=== PATIENT | female | born 1965 | race Caucasian/White ===

== ENCOUNTER 2018-06-13 19:04 | Emergency (ER) | payer MEDICARE ==
[2018-06-13 19:20] VITALS: BP 114/64
--- NOTE | 2018-06-13 19:29 | UC ---
Lower Extremity/Ankle HPI - HPI Summary HPI Summary: 4 days ago patient went to sit down on side of a swimming pool and she felt immediate pain in her right lateral foot---later had continued pain and swelling ---patient comes to urgent care today do to continued pain swelling and bruising 4/5 mt of right foot - History of Current Complaint Chief Complaint: UCLowerExtremity Stated Complaint: R FOOT INJURY Time Seen by Provider: 06/13/18 19:23 Hx Obtained From: Patient Hx Last Menstrual Period: hyster ?: No Onset/Duration: Sudden Onset, Lasting Days - 4 Pain Intensity: 7 Pain Scale Used: 0-10 Numeric Aggravating Factor(s): Standing, Ambulation Alleviating Factor(s): Rest, Elevation, Ice, OTC Meds Able to Bear Weight: Yes - Allergies/Home Medications Allergies/Adverse Reactions: Allergies Allergy/AdvReac Type Severity Reaction Status Date / Time Penicillins Allergy See Comment Verified 06/13/18 19:12 sulfamethoxazole Allergy Vomiting Verified 06/13/18 19:12 [From Bactrim] trimethoprim [From Bactrim] Allergy Vomiting Verified 06/13/18 19:12 Home Medications: Home Medications Acetaminophen [Tylenol Extra Strength] 1,000 mg PO Q8HR 06/13/18 [History Confirmed 06/13/18] PMH/Surg Hx/FS Hx/Imm Hx Previously Healthy: No - leukemia Cardiovascular History: Hypertension Psychological History: Depression - Surgical History Surgical History: Yes Surgery Procedure, Year, and Place: hysterectomy, 2002, [facility] [place]. , 1999, [facility] [place] - Family History Known Family History: Positive: Cardiac Disease, Hypertension - Social History Occupation: Unemployed Lives: With Family Alcohol Use: Occasionally Substance Use Type: None Smoking Status (MU): Never Smoked Tobacco Have You Smoked in the Last Year: No - Immunization History Most Recent Influenza Vaccination: not this season Review of Systems Constitutional: Negative Skin: Bruising - right foot Eyes: Negative ENT: Negative Respiratory: Negative Cardiovascular: Negative Gastrointestinal: Negative Genitourinary: Negative Motor: Negative Neurovascular: Negative Musculoskeletal: Arthralgia - right lateral foot pain Neurological: Negative Psychological: Negative Is Patient Immunocompromised?: No All Other Systems Reviewed And Are Negative: Yes Physical Exam Triage Information Reviewed: Yes Appearance: Well-Appearing, Pain Distress - mild, Obese Vital Signs: Initial Vital Signs Temp 97.3 F 06/13/18 19:11 Pulse 86 09/02/18 19:11 Resp 18 06/13/18 19:11 BP 114/64 06/13/18 19:11 Pulse Ox 95 06/13/18 19:11 Vital Signs Reviewed: Yes Eye Exam: Normal Eyes: Positive: Conjunctiva Clear ENT Exam: Normal ENT: Positive: Normal ENT inspection, Hearing grossly normal. Negative: Trismus , Muffled voice, Hoarse voice Dental Exam: Normal Neck exam: Normal Neck: Positive: Supple, Nontender Respiratory Exam: Normal Respiratory: Positive: Chest non-tender, No respiratory distress, No accessory muscle use Cardiovascular Exam: Normal Cardiovascular: Positive: RRR, Pulses Normal, Brisk Capillary Refill Musculoskeletal Exam: Normal, Other Musculoskeletal: Positive: ROM Intact, Strength Limited @ - right foot, Edema @ - right foot Neurological Exam: Normal Neurological: Positive: Alert, Muscle Tone Normal Psychological Exam: Normal Skin Exam: Normal Diagnostics - Radiology No standard instances Xray Interpretation: No Acute Changes Radiology Interpretation Completed By: ED Physician - fracture rigth fifth MT Lower Extremity Course/Dx - Course Course Of Treatment: elevated, nhi, cam boot, tylenol for pain follow with orthopedic MD 2 days - Differential Dx/Diagnosis Provider Diagnoses: displaced right 5th metatarsal fracture Discharge - Sign-Out/Discharge Documenting (check all that apply): Patient Departure All imaging exams completed and their final reports reviewed: No - Discharge Plan Condition: Stable Disposition: HOME Patient Education Materials: Acetaminophen (By mouth), Foot Fracture in Adults (ED), R.I.C.E. Treatment (ED) Referrals: Magdy Schwartz MD [Medical Doctor] - 2 Days - Billing Disposition and Condition Condition: STABLE Disposition: Home - Attestation Statements Provider Attestation: Per institutional requirements, I have reviewed the chart, however, I was not consulted specifically or made aware of this patient by the midlevel provider. I did not personally evaluate, interact with , or disposition this patient.
--- NOTE | 2018-06-14 07:44 | RAD ---
Indication: Right foot injury. 3 views of the right foot demonstrates comminuted fracture of the midshaft of the fifth metatarsal. No significant displacement is noted. Inferior calcaneal spur is noted. IMPRESSION: Comminuted fracture fifth metatarsal. R0
== END 2018-06-13 19:50 | disposition home or self-care (01) ==
LOC: UCEAST 19:04
DX: S92.354A Nondisplaced fracture of fifth metatarsal bone, right foot, initial encounter for closed fracture (principal); X58.XXXA Exposure to other specified factors, initial encounter; Y93.89 Activity, other specified; Y92.34 Swimming pool (public) as the place of occurrence of the external cause; Z88.0 Allergy status to penicillin; Z88.2 Allergy status to sulfonamides
CPT/HCPCS: 99213; G0463

== ENCOUNTER 2021-10-08 14:41 | Inpatient (IN) ==
[2021-10-08 16:14] LABS: ABS Lymphocytes 1.2 10^3/ul (1.0-4.8); ABS Monocytes 0.6 10^3/ul (0-0.8); ABS Neutrophils 4.2 10^3/ul (1.5-7.7); Hematocrit 41 % (35-47); Hemoglobin 13.5 g/dL (12.0-16.0); Lymphocyte % 20.3 %; Mean Corpuscular HGB Conc 33 g/dL (31-36); Mean Corpuscular Hemoglobin 28 pg (27-31); Mean Corpuscular Volume 84 fL (80-97); Mean Platelet Volume 8.7 fL (7.4-10.4); Nucleated Red Blood Cells % 0.1; Platelet Count 133 10^3/uL (150-450); Red Blood Count 4.85 10^6 /uL (3.70-4.87); Red Cell Distribution Width 19 % (10-15)
[2021-10-08 16:30] LABS: ALT 18 U/L (7-52); AST 48 U/L (13-39); Albumin 3.2 g/dL (3.2-5.2); Albumin/Globulin Ratio 0.9 (1-3); Alkaline Phosphatase 101 U/L (35-149); Anion Gap 6 mmol/L (2-11); Blood Urea Nitrogen 7 mg/dL (6-24); C Reactive Protein 76.61 mg/L (<8.01); CO2 Carbon Dioxide 29 mmol/L (22-32); Calcium 9.2 mg/dL (8.6-10.3); Chloride 97 mmol/L (101-111); Globulin 3.5 g/dL (2-4); Glucose 167 mg/dL (70-100); Potassium 3.5 mmol/L (3.5-5.0); Sodium 132 mmol/L (135-145); Total Protein 6.7 g/dL (6.4-8.9); eGFR CKD-EPI 107.3 (>60)
[2021-10-08 16:34] LABS: Troponin I 0.03 ng/mL (<0.03)
[2021-10-08] MEDS ORDERED: Remdesivir 100 mg Vial 200 MG in NS 0.9% 250 ml 210 ML IV ONE (17:32)
[2021-10-08] MEDS ORDERED: Albuterol HFA INHALER 8 gm MDI INH PRN (17:40)
[2021-10-08] MEDS ORDERED: Dextrose 50% Syringe 50 ml 25 GM/50 ML SYRINGE IV PUSH PRN (17:43)
[2021-10-08] MEDS: Enoxaparin 40 MG/0.4 ML SYR SUBCUT SCH (18:52)
[2021-10-08 20:41] LABS: INR 1.38 (0.86-1.15)
[2021-10-08 20:43] LABS: Albumin 3.1 g/dL (3.2-5.2); Albumin/Globulin Ratio 0.9 (1-3); Calcium 9.2 mg/dL (8.6-10.3); Globulin 3.3 g/dL (2-4); Potassium 3.6 mmol/L (3.5-5.0); Total Bilirubin 1.2 mg/dL (0.2-1.0); Total Protein 6.4 g/dL (6.4-8.9); eGFR CKD-EPI 108.8 (>60)
[2021-10-08 20:45] LABS: Troponin I 0.02 ng/mL (<0.03)
[2021-10-08 23:19] LABS: PCO2 Arterial 40 mmHg (35-45); PO2 Arterial 85 mmHg (80-100)
[2021-10-09] MEDS ORDERED: Furosemide 40 mg/4 ml IV VIAL IV SLOW PU ONE (02:51)
[2021-10-09] MEDS: Albuterol HFA INHALER 8 gm MDI INH SCH ×4 (04:02→17:49)
[2021-10-09 07:40] LABS: ABS Lymphocytes 0.4 10^3/ul (1.0-4.8); ABS Monocytes 0.2 10^3/ul (0-0.8); ABS Neutrophils 2.3 10^3/ul (1.5-7.7); Hematocrit 42 % (35-47); Hemoglobin 13.9 g/dL (12.0-16.0); Lymphocyte % 12.9 %; Mean Corpuscular HGB Conc 33 g/dL (31-36); Mean Corpuscular Hemoglobin 28 pg (27-31); Mean Corpuscular Volume 85 fL (80-97); Mean Platelet Volume 8.6 fL (7.4-10.4); Nucleated Red Blood Cells % 0.1; Platelet Count 120 10^3/uL (150-450); Red Blood Count 4.94 10^6 /uL (3.70-4.87); Red Cell Distribution Width 19 % (10-15); White Blood Count 2.9 10^3/uL (3.5-10.8)
[2021-10-09 07:54] LABS: INR 1.37 (0.86-1.15)
[2021-10-09 07:57] LABS: Albumin 3.1 g/dL (3.2-5.2); Albumin/Globulin Ratio 0.9 (1-3); Calcium 8.9 mg/dL (8.6-10.3); Globulin 3.5 g/dL (2-4); Potassium 4.2 mmol/L (3.5-5.0); Total Bilirubin 0.9 mg/dL (0.2-1.0); Total Protein 6.6 g/dL (6.4-8.9); eGFR CKD-EPI 107.8 (>60)
[2021-10-09] MEDS: Venlafaxine XR 75 mg PO SCH (08:06)
[2021-10-09] MEDS: Mometasone/Formoter 100/5 MDI INH SCH ×2 (08:22→20:42)
[2021-10-09] MEDS: Cholecalciferol (VIT D3) 1,000 unit TAB PO SCH (08:29)
[2021-10-09] MEDS: Enoxaparin 40 MG/0.4 ML SYR SUBCUT SCH (17:12)
[2021-10-09] MEDS: methylPREDNISolone SOD 40 mg/ml 1 ml VIAL IV SCH (19:56)
[2021-10-09] MEDS: Remdesivir 100 mg Vial 100 MG in NS 0.9% 250 ml 230 ML IV SCH (21:47)
[2021-10-10 04:23] LABS: ABS Lymphocytes 0.5 10^3/ul (1.0-4.8); ABS Monocytes 0.3 10^3/ul (0-0.8); ABS Neutrophils 5.4 10^3/ul (1.5-7.7); Hematocrit 40 % (35-47); Hemoglobin 13.2 g/dL (12.0-16.0); Lymphocyte % 7.3 %; Mean Corpuscular HGB Conc 33 g/dL (31-36); Mean Corpuscular Hemoglobin 28 pg (27-31); Mean Corpuscular Volume 84 fL (80-97); Mean Platelet Volume 8.7 fL (7.4-10.4); Platelet Count 132 10^3/uL (150-450); Red Blood Count 4.72 10^6 /uL (3.70-4.87); Red Cell Distribution Width 19 % (10-15); White Blood Count 6.1 10^3/uL (3.5-10.8)
[2021-10-10 04:29] LABS: INR 1.45 (0.86-1.15)
[2021-10-10 04:33] LABS: Calcium 9.2 mg/dL (8.6-10.3); Magnesium 1.6 mg/dL (1.9-2.7)
[2021-10-10 04:38] LABS: Phosphorus 3.3 mg/dL (2.5-5.0); eGFR CKD-EPI 109.3 (>60)
[2021-10-10] MEDS ORDERED: Magnesium Sulfate IV 3 GM in NS 0.9% 100 ml BAG 100 ML IVPB ONE (06:00)
[2021-10-10] MEDS: Mometasone/Formoter 100/5 MDI INH SCH ×2 (07:45→19:14)
[2021-10-10] MEDS: Albuterol HFA INHALER 8 gm MDI INH PRN (07:48)
[2021-10-10] MEDS: methylPREDNISolone SOD 40 mg/ml 1 ml VIAL IV SCH ×2 (08:12→20:11)
[2021-10-10] MEDS: Venlafaxine XR 75 mg PO SCH (08:12)
[2021-10-10] MEDS: Cholecalciferol (VIT D3) 1,000 unit TAB PO SCH (08:12)
[2021-10-10] MEDS ORDERED: Insulin GLARGINE 100 un/ml 10 ml VIAL SUBCUT ONE (11:35)
[2021-10-10] MEDS ORDERED: Insulin GLARGINE 100 un/ml 10 ml VIAL ONE (12:34)
[2021-10-10] MEDS: Enoxaparin 40 MG/0.4 ML SYR SUBCUT SCH (17:46)
[2021-10-10] MEDS ORDERED: guaiFENesin/CODIENE 100mg/10mg 5 ML UDC PO PRN (18:47)
[2021-10-10] MEDS: Remdesivir 100 mg Vial 100 MG in NS 0.9% 250 ml 230 ML IV SCH (20:10)
[2021-10-11 04:29] LABS: ABS Lymphocytes 0.3 10^3/ul (1.0-4.8); ABS Monocytes 0.2 10^3/ul (0-0.8); ABS Neutrophils 4.5 10^3/ul (1.5-7.7); Hematocrit 38 % (35-47); Hemoglobin 12.5 g/dL (12.0-16.0); Lymphocyte % 5.7 %; Mean Corpuscular HGB Conc 33 g/dL (31-36); Mean Corpuscular Hemoglobin 28 pg (27-31); Mean Corpuscular Volume 85 fL (80-97); Mean Platelet Volume 8.8 fL (7.4-10.4); Platelet Count 119 10^3/uL (150-450); Red Blood Count 4.44 10^6 /uL (3.70-4.87); Red Cell Distribution Width 19 % (10-15)
[2021-10-11 04:35] LABS: INR 1.58 (0.86-1.15)
[2021-10-11 04:45] LABS: Albumin 2.8 g/dL (3.2-5.2); Albumin/Globulin Ratio 0.9 (1-3); Calcium 8.9 mg/dL (8.6-10.3); Magnesium 1.8 mg/dL (1.9-2.7); Phosphorus 3.4 mg/dL (2.5-5.0); Potassium 4.2 mmol/L (3.5-5.0); Total Bilirubin 0.9 mg/dL (0.2-1.0); Total Protein 5.8 g/dL (6.4-8.9)
[2021-10-11] MEDS ORDERED: Magnesium Sulfate 2 gm BAG 2 GM/50 ML BAG IVPB ONE (05:40)
[2021-10-11] MEDS ORDERED: Furosemide 40 mg/4 ml IV VIAL IV SLOW PU ONE (06:00)
[2021-10-11] MEDS: Mometasone/Formoter 100/5 MDI INH SCH ×2 (07:39→19:17)
[2021-10-11] MEDS: Albuterol HFA INHALER 8 gm MDI INH PRN (07:40)
[2021-10-11] MEDS: Cholecalciferol (VIT D3) 1,000 unit TAB PO SCH (08:21)
[2021-10-11] MEDS: methylPREDNISolone SOD 40 mg/ml 1 ml VIAL IV SCH ×2 (08:22→20:58)
[2021-10-11] MEDS: Venlafaxine XR 75 mg PO SCH (08:22)
[2021-10-11] MEDS ORDERED: Insulin GLARGINE 100 un/ml 10 ml VIAL SUBCUT SCH (09:00)
[2021-10-11 11:19] LABS: Methotrexate <0.04 mcmol/L (<0.10)
[2021-10-11] MEDS: Enoxaparin 40 MG/0.4 ML SYR SUBCUT SCH (17:36)
[2021-10-11] MEDS: Remdesivir 100 mg Vial 100 MG in NS 0.9% 250 ml 230 ML IV SCH (20:59)
[2021-10-12 04:55] LABS: INR 1.49 (0.86-1.15)
[2021-10-12 05:03] LABS: ABS Lymphocytes 0.2 10^3/ul (1.0-4.8); ABS Monocytes 0.3 10^3/ul (0-0.8); ABS Neutrophils 4.7 10^3/ul (1.5-7.7); Hematocrit 38 % (35-47); Hemoglobin 12.5 g/dL (12.0-16.0); Lymphocyte % 3.5 %; Mean Corpuscular HGB Conc 34 g/dL (31-36); Mean Corpuscular Hemoglobin 29 pg (27-31); Mean Corpuscular Volume 85 fL (80-97); Red Blood Count 4.41 10^6 /uL (3.70-4.87); Red Cell Distribution Width 19 % (10-15); White Blood Count 5.1 10^3/uL (3.5-10.8)
[2021-10-12 05:07] LABS: Albumin 2.8 g/dL (3.2-5.2); Calcium 8.7 mg/dL (8.6-10.3); Globulin 2.8 g/dL (2-4); Magnesium 1.7 mg/dL (1.9-2.7); Phosphorus 3.4 mg/dL (2.5-5.0); Potassium 4.4 mmol/L (3.5-5.0); Total Protein 5.6 g/dL (6.4-8.9); eGFR CKD-EPI 111.5 (>60)
[2021-10-12 05:36] LABS: Mean Platelet Volume 8.7 fL (7.4-10.4); Platelet Count 85 10^3/uL (150-450)
[2021-10-12] MEDS: Albuterol HFA INHALER 8 gm MDI INH PRN (07:38)
[2021-10-12] MEDS: Mometasone/Formoter 100/5 MDI INH SCH ×2 (07:38→19:30)
[2021-10-12] MEDS ORDERED: Magnesium Sulfate IV 3 GM in NS 0.9% 100 ml BAG 100 ML IVPB ONE (08:03)
[2021-10-12] MEDS: Venlafaxine XR 75 mg PO SCH (08:58)
[2021-10-12] MEDS: methylPREDNISolone SOD 40 mg/ml 1 ml VIAL IV SCH (08:58)
[2021-10-12] MEDS: Cholecalciferol (VIT D3) 1,000 unit TAB PO SCH (08:59)
[2021-10-12] MEDS ORDERED: Insulin GLARGINE 100 un/ml 10 ml VIAL SUBCUT SCH (09:00)
[2021-10-12] MEDS: Remdesivir 100 mg Vial 100 MG in NS 0.9% 250 ml 230 ML IV SCH (20:53)
[2021-10-13 05:37] LABS: ABS Lymphocytes 0.5 10^3/ul (1.0-4.8); ABS Monocytes 0.4 10^3/ul (0-0.8); ABS Neutrophils 4.7 10^3/ul (1.5-7.7); Eosinophil % 0.1 %; Hematocrit 37 % (35-47); Hemoglobin 12.5 g/dL (12.0-16.0); Lymphocyte % 9.7 %; Mean Corpuscular HGB Conc 34 g/dL (31-36); Mean Corpuscular Hemoglobin 29 pg (27-31); Mean Corpuscular Volume 85 fL (80-97); Platelet Count 94 10^3/uL (150-450); Red Blood Count 4.34 10^6 /uL (3.70-4.87); Red Cell Distribution Width 18 % (10-15); White Blood Count 5.7 10^3/uL (3.5-10.8)
[2021-10-13 05:58] LABS: INR 1.53 (0.86-1.15)
[2021-10-13 06:04] LABS: Albumin 2.6 g/dL (3.2-5.2); Calcium 8.6 mg/dL (8.6-10.3); Globulin 2.6 g/dL (2-4); Magnesium 1.9 mg/dL (1.9-2.7); Phosphorus 2.9 mg/dL (2.5-5.0); Total Bilirubin 0.9 mg/dL (0.2-1.0); Total Protein 5.2 g/dL (6.4-8.9); eGFR CKD-EPI 112.1 (>60)
[2021-10-13] MEDS: Mometasone/Formoter 100/5 MDI INH SCH ×2 (07:58→19:34)
[2021-10-13] MEDS ORDERED: Insulin GLARGINE 100 un/ml 10 ml VIAL SUBCUT SCH (09:00)
[2021-10-13] MEDS: Venlafaxine XR 75 mg PO SCH (09:41)
[2021-10-13] MEDS: Cholecalciferol (VIT D3) 1,000 unit TAB PO SCH (09:43)
[2021-10-13] MEDS: methylPREDNISolone SOD 40 mg/ml 1 ml VIAL IV SCH (09:47)
[2021-10-13] MEDS: Polyethylene Glycol 3350 17 GM PACKET PO SCH (20:00)
[2021-10-14 04:54] LABS: ABS Lymphocytes 0.6 10^3/ul (1.0-4.8); ABS Monocytes 0.5 10^3/ul (0-0.8); Eosinophil % 0.5 %; Hematocrit 39 % (35-47); Hemoglobin 12.9 g/dL (12.0-16.0); Lymphocyte % 7.8 %; Mean Corpuscular HGB Conc 33 g/dL (31-36); Mean Corpuscular Hemoglobin 28 pg (27-31); Mean Corpuscular Volume 85 fL (80-97); Mean Platelet Volume 8.4 fL (7.4-10.4); Platelet Count 105 10^3/uL (150-450); Red Cell Distribution Width 19 % (10-15); White Blood Count 7.2 10^3/uL (3.5-10.8)
[2021-10-14 05:17] LABS: Albumin 2.6 g/dL (3.2-5.2); Calcium 8.6 mg/dL (8.6-10.3); Globulin 2.7 g/dL (2-4); Magnesium 1.8 mg/dL (1.9-2.7); Potassium 4.3 mmol/L (3.5-5.0); Total Bilirubin 0.9 mg/dL (0.2-1.0); Total Protein 5.3 g/dL (6.4-8.9); eGFR CKD-EPI 112.7 (>60)
[2021-10-14] MEDS: Mometasone/Formoter 100/5 MDI INH SCH ×2 (07:20→19:15)
[2021-10-14] MEDS: Insulin GLARGINE 100 un/ml 10 ml VIAL SUBCUT SCH (09:16)
[2021-10-14] MEDS: Polyethylene Glycol 3350 17 GM PACKET PO SCH ×2 (09:17→22:08)
[2021-10-14] MEDS: Cholecalciferol (VIT D3) 1,000 unit TAB PO SCH (09:18)
[2021-10-14] MEDS: Venlafaxine XR 75 mg PO SCH (09:19)
[2021-10-14] MEDS: methylPREDNISolone SOD 40 mg/ml 1 ml VIAL IV SCH (09:20)
[2021-10-14] MEDS ORDERED: Heparin 5000 UNITS/ML 1 mL VIAL SUBCUT SCH (14:00)
[2021-10-14] MEDS: Senna TAB 8.6 mg TAB PO SCH (22:08)
[2021-10-15 05:04] LABS: Calcium 8.7 mg/dL (8.6-10.3); Magnesium 1.8 mg/dL (1.9-2.7); Phosphorus 3.6 mg/dL (2.5-5.0); Potassium 4.3 mmol/L (3.5-5.0)
[2021-10-15] MEDS ORDERED: Dextrose 50% Syringe 50 ml 25 GM/50 ML SYRINGE IV PUSH PRN (07:13)
[2021-10-15] MEDS ORDERED: Magnesium Sulfate 2 gm BAG 2 GM/50 ML BAG IVPB ONE (08:10)
[2021-10-15] MEDS: Mometasone/Formoter 100/5 MDI INH SCH ×2 (08:58→19:32)
[2021-10-15] MEDS: Polyethylene Glycol 3350 17 GM PACKET PO SCH ×2 (09:21→20:09)
[2021-10-15] MEDS: Insulin GLARGINE 100 un/ml 10 ml VIAL SUBCUT SCH (09:21)
[2021-10-15] MEDS: Cholecalciferol (VIT D3) 1,000 unit TAB PO SCH (09:21)
[2021-10-15] MEDS: Venlafaxine XR 75 mg PO SCH (09:22)
[2021-10-15] MEDS: Enoxaparin 40 MG/0.4 ML SYR SUBCUT SCH (15:05)
[2021-10-15] MEDS: Senna TAB 8.6 mg TAB PO SCH (20:10)
[2021-10-16 05:53] LABS: ABS Lymphocytes 0.4 10^3/ul (1.0-4.8); ABS Monocytes 0.3 10^3/ul (0-0.8); ABS Neutrophils 6.4 10^3/ul (1.5-7.7); Eosinophil % 0.1 %; Hematocrit 40 % (35-47); Lymphocyte % 5.7 %; Mean Corpuscular HGB Conc 33 g/dL (31-36); Mean Corpuscular Hemoglobin 28 pg (27-31); Mean Corpuscular Volume 86 fL (80-97); Mean Platelet Volume 8.4 fL (7.4-10.4); Nucleated Red Blood Cells % 0.1; Platelet Count 102 10^3/uL (150-450); Red Blood Count 4.61 10^6 /uL (3.70-4.87); Red Cell Distribution Width 18 % (10-15); White Blood Count 7.1 10^3/uL (3.5-10.8)
[2021-10-16 06:07] LABS: Calcium 8.6 mg/dL (8.6-10.3); Potassium 4.6 mmol/L (3.5-5.0)
[2021-10-16 06:13] LABS: eGFR CKD-EPI 114.7 (>60)
[2021-10-16 07:30] LABS: Magnesium 1.9 mg/dL (1.9-2.7)
[2021-10-16] MEDS ORDERED: Insulin GLARGINE 100 un/ml 10 ml VIAL SUBCUT SCH (09:00)
[2021-10-16] MEDS: Polyethylene Glycol 3350 17 GM PACKET PO SCH ×2 (09:02→20:54)
[2021-10-16] MEDS: Cholecalciferol (VIT D3) 1,000 unit TAB PO SCH (09:04)
[2021-10-16] MEDS: Venlafaxine XR 75 mg PO SCH (09:05)
[2021-10-16] MEDS: Mometasone/Formoter 100/5 MDI INH SCH ×2 (12:13→20:09)
[2021-10-16] MEDS: Enoxaparin 40 MG/0.4 ML SYR SUBCUT SCH (15:11)
[2021-10-16] MEDS: Senna TAB 8.6 mg TAB PO SCH (20:54)
[2021-10-17 06:37] LABS: ABS Lymphocytes 0.4 10^3/ul (1.0-4.8); ABS Monocytes 0.4 10^3/ul (0-0.8); ABS Neutrophils 5.1 10^3/ul (1.5-7.7); Eosinophil % 0.2 %; Hematocrit 39 % (35-47); Hemoglobin 12.7 g/dL (12.0-16.0); Lymphocyte % 7.3 %; Mean Corpuscular HGB Conc 33 g/dL (31-36); Mean Corpuscular Hemoglobin 28 pg (27-31); Mean Corpuscular Volume 86 fL (80-97); Mean Platelet Volume 8.5 fL (7.4-10.4); Platelet Count 92 10^3/uL (150-450); Red Blood Count 4.49 10^6 /uL (3.70-4.87); Red Cell Distribution Width 18 % (10-15); White Blood Count 5.9 10^3/uL (3.5-10.8)
[2021-10-17 06:45] LABS: Calcium 8.8 mg/dL (8.6-10.3); Magnesium 1.9 mg/dL (1.9-2.7); Phosphorus 4.3 mg/dL (2.5-5.0); Potassium 4.4 mmol/L (3.5-5.0)
[2021-10-17] MEDS: Cholecalciferol (VIT D3) 1,000 unit TAB PO SCH (08:31)
[2021-10-17] MEDS: Venlafaxine XR 75 mg PO SCH (08:31)
[2021-10-17] MEDS: Polyethylene Glycol 3350 17 GM PACKET PO SCH ×2 (08:35→18:20)
[2021-10-17] MEDS ORDERED: Insulin GLARGINE 100 un/ml 10 ml VIAL SUBCUT SCH (09:00)
[2021-10-17] MEDS ORDERED: Insulin GLARGINE 100 un/ml 10 ml VIAL SUBCUT ONE (09:41)
[2021-10-17] MEDS: Mometasone/Formoter 100/5 MDI INH SCH ×2 (10:42→19:27)
[2021-10-17] MEDS: Insulin ISOPH/REG 70/30 SUBCUT SCH (12:20)
[2021-10-17] MEDS ORDERED: Enoxaparin 40 MG/0.4 ML SYR SUBCUT SCH (16:30)
[2021-10-17] MEDS: Senna TAB 8.6 mg TAB PO SCH (20:06)
[2021-10-18 07:17] LABS: ABS Lymphocytes 0.6 10^3/ul (1.0-4.8); ABS Monocytes 0.4 10^3/ul (0-0.8); ABS Neutrophils 4.6 10^3/ul (1.5-7.7); Eosinophil % 0.1 %; Hematocrit 39 % (35-47); Hemoglobin 12.6 g/dL (12.0-16.0); Lymphocyte % 10.1 %; Mean Corpuscular HGB Conc 33 g/dL (31-36); Mean Corpuscular Hemoglobin 29 pg (27-31); Mean Corpuscular Volume 88 fL (80-97); Mean Platelet Volume 8.8 fL (7.4-10.4); Nucleated Red Blood Cells % 0.1; Platelet Count 89 10^3/uL (150-450); Red Blood Count 4.41 10^6 /uL (3.70-4.87); Red Cell Distribution Width 19 % (10-15); White Blood Count 5.6 10^3/uL (3.5-10.8)
[2021-10-18 07:21] LABS: Calcium 8.8 mg/dL (8.6-10.3); Magnesium 1.8 mg/dL (1.9-2.7); Phosphorus 3.8 mg/dL (2.5-5.0); Potassium 4.4 mmol/L (3.5-5.0); eGFR CKD-EPI 112.7 (>60)
[2021-10-18] MEDS ORDERED: Magnesium Sulfate IV 3 GM in NS 0.9% 100 ml BAG 100 ML IVPB ONE (07:28)
[2021-10-18] MEDS: Mometasone/Formoter 100/5 MDI INH SCH (07:50)
[2021-10-18] MEDS: Polyethylene Glycol 3350 17 GM PACKET PO SCH (07:58)
[2021-10-18] MEDS: Venlafaxine XR 75 mg PO SCH (08:01)
[2021-10-18] MEDS: Cholecalciferol (VIT D3) 1,000 unit TAB PO SCH (08:02)
[2021-10-18] MEDS ORDERED: Insulin GLARGINE 100 un/ml 10 ml VIAL SUBCUT SCH (09:00)
[2021-10-18] MEDS: Insulin ISOPH/REG 70/30 SUBCUT SCH (11:38)
[2021-10-18] MEDS ORDERED: COVID-19 VACCINE, MRNA(MODERNA)/PF 100 MCG/0.5 ML IM ONE (14:30)
[2021-10-18 14:46] VITALS: BP 118/74
== END 2021-10-18 16:30 | disposition home or self-care (01) | DRG 177 ==
LOC: EDHOLD 14:41 → ED 14:41 → SUATTDRO 23:27 → ICU 10-09 13:04 → MED 10-17 06:08
PROVIDERS: ADMIT Hospitalist; ATTEND Internal Medicine